=== PATIENT | male | born 1985 | race Caucasian/White ===

== ENCOUNTER 2016-12-08 18:00 | Emergency (ER) ==
[2016-12-08 18:09] VITALS: BP 165/102
[2016-12-08] MEDS ORDERED: NS 500 ML IV ONE (18:16)
[2016-12-08] MEDS ORDERED: FLOMAX PO ONE (18:16)
[2016-12-08] MEDS ORDERED: DILAUDID IV ONE (18:16)
[2016-12-08] MEDS ORDERED: ZOFRAN IV ONE (18:16)
--- NOTE | 2016-12-08 18:20 | PROVIDER DOCUMENTATION ---
HPI-Abdominal Pain/GI Problem - General Chief Complaint: Flank Pain Stated Complaint: KIDNY STONE Time Seen by Provider: 12/08/16 18:10 Source: patient Allergies/Adverse Reactions: Patient Allergies Allergy/AdvReac Type Severity Reaction Status Date / Time ceftriaxone sodium * Allergy Severe HIVES Verified 02/26/16 07:24 [From Rocephin] Penicillins Allergy Severe ANAPHYLAXIS Verified 02/26/16 07:24 Home Medications: Gabapentin 100 mg PO DAILY 07/02/15 Hydrocodone/APAP 7.5 mg/325 mg [[place]-7.5] 5 mg PO BID 07/02/15 Zolpidem Tartrate [Ambien Cr] 12.5 mg PO DAILY 07/02/15 - History of Present Illness-ABD Nature of Presenting Problems: 31 year old M presents to the ED with a cc of left flank pain with an onset of today. Pt states that he has had some nausea for the past few days. PT reports hematuria today. PT states that it feels just like his previous kidney stones. Abdominal Pain Onset Location: reports: flank Pain Radiation: reports: LLQ Quality of Pain: reports: aching Severity in ED: reports: mild Onset/Duration: reports: this afternoon Timing: reports: still present Activities at Onset: reports: none Modifying Factors: improves with: nothing Associated Symptoms: reports: nausea Bruising or Bleeding Gums?: No Similar Symptoms Previously?: Yes Recently seen or treated by another doctor?: No Review of Systems - Adult - REVIEW OF SYSTEMS - ADULT Constitutional: denies: chills, fever Eyes: reports: no symptoms reported Ears, Nose, Mouth & Throat: reports: no symptoms reported Cardiovascular: reports: no symptoms reported Respiratory: reports: no symptoms reported Gastrointestinal: reports: abdominal pain, nausea. denies: vomiting Genitourinary: reports: flank pain, hematuria. denies: dysuria Musculoskeletal: denies: back pain, muscle aches Integumentary: reports: no symptoms reported Neurological: reports: no symptoms reported Psychiatric: reports: no symptoms reported Endocrine: reports: no symptoms reported Hematologic/Lymphatic: reports: no symptoms reported Allergic/Immunologic: reports: no symptoms reported All Other Systems: Reviewed and Negative Past History - Adult - PAST MEDICAL HISTORY-ADULT Review of Records: reports: Nursing Assessment Review, Medications Reviewed Major Childhood Illnesses: reports: denies history Genitourinary: reports: kidney stones Musculoskeletal: reports: chronic pain, intervertebral disc disease - PRIOR SURGERIES/PROCEDURES Surgical/Procedure History: reports: tonsillectomy - IMMUNIZATION STATUS Childhood Immunizations: See Nurse Assessment Flu Vaccine: See Nurse Assessment - FAMILY HISTORY Family History: reviewed, not pertinent - SOCIAL HISTORY Smoking: cigarettes Provider spent 3-5 mins advising pt. on dangers of tobacco.: Discussed manners to quit use, and f/u contacts for add'l counseling. Substance Use: none/never Alcohol Use Frequency: never Physical Exam-General - PHYSICAL EXAM-ADULT Initial Vital Signs Reviewed: Yes - CONSTITUTIONAL General Appearance: appears well, alert, no apparent distress - RESPIRATORY Respiratory: chest non-tender, lungs clear, normal breath sounds - CARDIOVASCULAR Cardiovascular: normal peripheral pulses, regular rate, rhythm, no edema - GASTROINTESTINAL (ABDOMEN) Abdominal Exam: normal bowel sounds, soft, tenderness (mild LLQ) - MUSCULOSKELETAL Back Exam: CVA tenderness (moderate left) - SKIN Integumentary: normal color, normal turgor, warm/dry - PSYCHIATRIC Psych/Mental Status: normal mood/affect, normal thought content, normal thought process, oriented x 3 Progress - PLAN OF CARE/RESULTS Progress/Plan/Lab Results: Plan of care: fluids, meidcations, labs Dr. Figueroa discussed with pt about the risks of multiple CT scans. PT agrees and is okay with not getting a scan. Orders Category Date Time Status URINALYSIS PL W/POSS RFLX CULT [URINALYSIS] Stat Lab 12/08/16 18:16 Uncollected 0.9% Sodium Chloride Inj [Ns] 500 ml Med 12/08/16 18:16 Active IV 999 mls/hr Hydromorphone [Dilaudid] Med 12/08/16 18:16 Discontinued 1 mg IV NOW ONE Ondansetron [Zofran] Med 12/08/16 18:16 Discontinued 4 mg IV NOW ONE Tamsulosin [Flomax] Med 12/08/16 18:16 Discontinued 0.4 mg PO NOW ONE Vital Signs - 24 hr 12/08/16 18:07 Temperature 97.8 F Pulse Rate 102 H Respiratory 18 Rate Blood Pressure 165/102 O2 Sat by Pulse 100 Oximetry Pt given results and will be d/c home w/ rx to follow up with PCP. Pt verbally understood instructions. PT remained clinically stable throughout the course of the ED stay and will return if symptoms worsen. - REASSESSMENT Reassessment #1 Time Reassessed: 19:00 (Pt feeling much better. PT declines narcotic script due to being on pain management. PT will be d/c home with RX and a follow up with Dr. Salomon. ) Departure - Departure Time of Disposition Order: 19:03 DIAGNOSIS: Kidney stone Disposition: HOME 01 Certified Medical Emergency: Emergent Condition: Good Additional Instructions: Follow up urology. Return to ED for any new or worsening symptoms. Establish care with a primary physician by calling the physician referral line below ED Follow Up Instructions: You have been treated by a care provider in the Emergency Department. These instructions are being provided to you so you can have an understanding of how to care for yourself upon discharge. Upon discharge from the Emergency Department, you are responsible for making arrangements for follow-up care by a physician of your choice. Take all prescribed medications as directed. Return to the Emergency Department immediately for any new or worsening symptoms. You may call the Physician Referral phone number at [phone] to obtain a list of Physicians who are taking new patients. Prescriptions: Tamsulosin [Flomax] 0.4 mg PO DAILY #7 capsule Ketorolac [Toradol] 10 mg PO Q6H PRN PRN #20 tablet PRN Reason: Pain Ondansetron [Zofran Odt] 8 mg PO Q8H PRN #20 tab.rapdis Referrals: None,PCP [Primary Care Provider] - Marco Salomon MD [STAFF PHYSICIAN] - Attestation - Scribe Verification/Attestation Scribe:: Lydia Jonas Acting as Scribe for:: Anshul Figueroa Scribe documention review:: This chart was documented by a scribe and accurately reflects the service the provider performed and the decisions made by the provider. Physician Attestation - Physician Attestation I, the provider, attest to the following statement:: Anshul Figueroa Physician documentation Attestation:: This documentation recorded by the scribe accurately reflects the service I personally performed and the decisions made by me.
[2016-12-08] MEDS ORDERED: TORADOL ONE (18:39)
[2016-12-08] MEDS ORDERED: TORADOL IV ONE (18:53)
== END 2016-12-08 19:43 | disposition home or self-care (01) ==
LOC: P.ED 18:00
DX: N20.0 Calculus of kidney (principal); R10.9 Unspecified abdominal pain; R10.32 Left lower quadrant pain; R11.0 Nausea; R31.9 Hematuria, unspecified; Z87.442 Personal history of urinary calculi; G89.29 Other chronic pain; M48.9 Spondylopathy, unspecified; F17.210 Nicotine dependence, cigarettes, uncomplicated; Z71.6 Tobacco abuse counseling; Z79.899 Other long term (current) drug therapy
CPT/HCPCS: 96361; 96374; 96375; J1170; J1885; J2405; J7040

== ENCOUNTER 2019-08-16 16:19 | Inpatient (IN) ==
[2019-08-16] MEDS ORDERED: ZOFRAN IV ONE (18:14)
[2019-08-16] MEDS ORDERED: NS 1,000 ML IV ONE (18:14)
--- NOTE | 2019-08-16 18:14 | PROVIDER DOCUMENTATION ---
HPI-Male Problem - General Chief Complaint: Flank Pain Stated Complaint: ABD PAIN Time Seen by Provider: 08/16/19 18:09 Source: patient Allergies/Adverse Reactions: Patient Allergies Allergy/AdvReac Type Severity Reaction Status Date / Time ceftriaxone sodium * Allergy Severe HIVES Verified 02/26/16 07:24 [From Rocephin] Penicillins Allergy Severe ANAPHYLAXIS Verified 02/26/16 07:24 Home Medications: Home Medication List Medication Instructions Recorded Confirmed Last Taken Type Gabapentin 100 mg PO DAILY 07/02/15 02/26/16 Unknown History Hydrocodone/APAP 7.5 mg/325 mg 5 mg PO BID 07/02/15 02/26/16 07/02/15 History [[place]-7.5] Naproxen 500 mg PO BID AC #20 tablet 07/02/15 02/26/16 Unknown Rx Zolpidem Tartrate [Ambien Cr] 12.5 mg PO DAILY 07/02/15 02/26/16 1 Day Ago History ~07/01/15 Hydrocodone/APAP 5 mg/325 mg 1 - 2 tab PO Q6H PRN PRN #18 tablet 02/26/16 Unknown Rx [[place]-5] Ketorolac [Toradol] 10 mg PO Q6H PRN PRN #20 tablet 02/26/16 Unknown Rx Tamsulosin [Flomax] 0.4 mg PO DAILY #14 capsule 02/26/16 Unknown Rx Ketorolac [Toradol] 10 mg PO Q6H PRN PRN #20 tablet 12/08/16 Unknown Rx Ondansetron [Zofran Odt] 8 mg PO Q8H PRN #20 tab.rapdis 12/08/16 Unknown Rx Tamsulosin [Flomax] 0.4 mg PO DAILY #7 capsule 12/08/16 Unknown Rx Levofloxacin [Levaquin] 750 mg PO DAILY #14 tab 08/16/19 Unknown Rx - History of Present Illness-Male Nature of Presenting Problem: 33 yom presents with r flank pain radiating to the groin and nausea. reports a hx of kidney stones. Denies fever, chills, inability to urinate. Location of Complaint: reports: right flank Radiation: reports: groin Quality of Pain: reports: aching, sharp Severity in ED: reports: moderate Onset/Duration: reports: 24 hours ago Timing: reports: still present Context/Activities at Onset: reports: none Urinary Symptoms: reports: dysuria, hematuria Sexual intercourse history: reports: Single Partner Contraception: reports: none Associated Symptoms: reports: none Associated Symptoms: reports: denies symptoms. denies: fever/chills Similar Symptoms Previously?: Yes Recently seen or treated by another doctor?: No Review of Systems - Adult - REVIEW OF SYSTEMS - ADULT Constitutional: reports: no symptoms reported. denies: see HPI, chills, fever, fatique, night sweats, weight gain, weight loss, other Eyes: reports: no symptoms reported. denies: see HPI, discharge, dry eyes, decreased vision, blurred vision, double vision, eye pain, redness, other Ears, Nose, Mouth & Throat: reports: no symptoms reported. denies: see HPI, ear discharge, ear pain, hearing loss, tinnitus, epistaxis, sinus problem, nose pain, loose teeth, mouth/dental pain, mouth swelling, hoarseness, throat pain, throat swelling, other Cardiovascular: reports: no symptoms reported. denies: see HPI, chest pain, edema, heart murmur, irregular heart rate, orthopnea, palpitations, poor circulation, PND, syncope, other Respiratory: reports: no symptoms reported. denies: see HPI, chronic cough, cough, dyspnea on exertion, excessive sputum production, hemoptysis, pleurisy, shortness of breath, wheezing, other Gastrointestinal: reports: no symptoms reported. denies: see HPI, abdominal pain, hematemesis, constipation, diarrhea, difficulty swallowing, frequent heartburn, nausea, poor appetite, rectal bleeding, vomiting, other Genitourinary: reports: see HPI, dysuria, flank pain, hematuria. denies: no symptoms reported, discharge, frequency, frequent UTI's, hesitency, incontinen ce, urinary retention, urgency, other Musculoskeletal: reports: no symptoms reported. denies: see HPI, bone pain, back pain, frequent leg cramps, joint pain, joint swelling, muscle aches, muscle weakness, neck pain, other Integumentary: reports: no symptoms reported. denies: see HPI, hives, hair loss, itching, mole changes, nail changes, rash, skin sores/ulcer, skin thickening, other Neurological: reports: no symptoms reported. denies: see HPI, ataxia, dizziness/vertigo, headache/migraines, loss of balance, numbness, paresthesia, seizure, slurred speech, syncope, tremors, other Psychiatric: reports: no symptoms reported. denies: see HPI, anxiety, anti- depressant use, alcohol/drug dependence, depression, emotional problems, insomnia, panic attacks, suicidal thoughts, other Endocrine: reports: no symptoms reported. denies: see HPI, change in skin pigment, excessive sweating, goiter, cold intolerance, heat intolerance, increased hunger, increased thirst, polyuria, other Hematologic/Lymphatic: reports: no symptoms reported. denies: see HPI, blood clots, easy bruising, low blood count, lymphedema, prolonged bleeding, swollen lymph nodes, transfusions, other Allergic/Immunologic: reports: no symptoms reported. denies: see HPI, allergic reactions, allergic rhinitis, asthma, eczema, food allergy, frequent infections, hay fever, hives, positive PPD, urticaria, other Past History - Adult - PAST MEDICAL HISTORY-ADULT Review of Records: reports: Old Records Reviewed, Nursing Assessment Review, Social history reviewed & non-contributory. Major Childhood Illnesses: reports: denies history Genitourinary: reports: kidney stones Musculoskeletal: reports: chronic pain, intervertebral disc disease - PRIOR SURGERIES/PROCEDURES Surgical/Procedure History: reports: tonsillectomy - IMMUNIZATION STATUS Childhood Immunizations: See Nurse Assessment Flu Vaccine: See Nurse Assessment - FAMILY HISTORY Family History: reviewed, not pertinent Physical Exam-General - PHYSICAL EXAM-ADULT Initial Vital Signs Reviewed: Yes - CONSTITUTIONAL General Appearance: appears well, alert, no apparent distress - EYES Eyes: PERRL/EOMI, pink conjunctivae - HEAD, EARS, NOSE, MOUTH & THROAT HENMT: normocephalic/atraumatic, moist mucous membranes, normal ENT inspection - NECK Neck: non-tender, full range of motion, supple - RESPIRATORY Respiratory: chest non-tender, lungs clear, normal breath sounds, no pleuratic chest pain, no respiratory distress, no accessory muscle use - CARDIOVASCULAR Cardiovascular: normal peripheral pulses, regular rate, rhythm, no edema, no gallop, no JVD, no murmur - GASTROINTESTINAL (ABDOMEN) Abdominal Exam: normal bowel sounds, non tender, soft - LYMPHATIC Lymphatic: no adenopathy - MUSCULOSKELETAL Back Exam: normal inspection, no CVA tenderness, no vertebral tenderness Extremity: normal range of motion, non-tender, normal gait, normal inspection - SKIN Integumentary: normal color, normal turgor, warm/dry - NEUROLOGIC Neurologic: grossly normal - PSYCHIATRIC Psych/Mental Status: normal mood/affect, oriented x 3 Progress - PLAN OF CARE/RESULTS Progress/Plan/Lab Results: Vital Signs - 8 hr 08/16/19 17:10 08/16/19 20:10 Temperature 98 F 98.5 F Pulse Rate 110 H 120 H Respiratory Rate 18 19 Blood Pressure 153/89 146/108 O2 Sat by Pulse Oximetry 100 100 Laboratory Results - last 24 hr 08/16/19 08/16/19 08/16/19 17:16 19:50 19:50 WBC 18.06 H RBC 6.39 H Hgb 18.0 Hct 52.2 H MCV 81.7 MCH 28.2 MCHC 34.5 RDW Std Deviation 12.6 Plt Count 312 MPV 11.0 H Immature Gran % (Auto) 0.4 Neut % (Auto) 83.5 H Lymph % (Auto) 9.7 L [place] % (Auto) 5.4 Eos % (Auto) 0.8 Baso % (Auto) 0.2 Immature Gran # (Auto) 0.07 H Neut # (Auto) 15.09 H Lymph # (Auto) 1.75 Ware # (Auto) 0.98 H Eos # (Auto) 0.14 Baso # (Auto) 0.03 Sodium 138 Potassium 5.0 Chloride 97 L Carbon Dioxide 27 Anion Gap 14 BUN 17 Creatinine 1.0 Estimated GFR/1.73 m2 > 60 BUN/Creatinine Ratio 17 Glucose 117 H Calculated Osmolality 278 Calcium 10.3 H Total Bilirubin 0.90 AST 48 H ALT 74 H Alkaline Phosphatase 114 Total Protein 9.1 H Albumin 5.4 H Globulin 4.0 Albumin/Globulin Ratio 1.0 Urine Source CLEAN CATCH Urine Color RED Urine Clarity VERY CLOUDY A Urine pH 7.0 Ur Specific [place] 1.020 Urine Protein 3+(500 mg/dL) A Urine Ketones 1+(Small) A Urine Blood 4+ Urine Nitrite POSITIVE A Urine Bilirubin NEGATIVE Urine Urobilinogen 1 Urine Microscopic RBC TNTC A Urine WBC 2+ A Urine Microscopic WBC 10-20 A Ur Epithelial Cells <10 Urine Crystals CA OXALATE PRESENT Urine Bacteria 2+ Urine Glucose NEGATIVE Orders Category Date Time Status Saline Loc NOW Care 08/16/19 18:[address] RENAL STONE SEARCH [CT] Stat Exams 08/16/19 18:11 Completed CBC WITH ELECTRONIC DIFF [HEME] Stat Lab 08/16/19 19:50 Completed COMPREHENSIVE METABOLIC PANEL [CHEM] Stat Lab 08/16/19 19:[address] W/POSS RFLX CULT [URINALYSIS] Stat Lab 08/16/19 17:16 Completed URINE CULTURE [RM] Routine Lab 08/16/19 20:53 Ordered 0.9% Sodium Chloride Inj [Ns] 1,000 ml Med 08/16/19 18:14 Discontinued IV 999 mls/hr Ketorolac [Toradol] Med 08/16/19 18:15 Discontinued 30 mg IV NOW ONE Levofloxacin 500 mg/D5w [Levaquin 500 mg/D5w] Med 08/16/19 20:59 Active 500 mg in 100 ml IV NOW Ondansetron [Zofran] Med 08/16/19 18:14 Discontinued 4 mg IV NOW ONE 2000: NURSING ASKED TO EXPEDITE URINE 2039: NURSING ASKED AGAIN FOR URINE. THERE IS URINE IN LAB AND ORDER NEEDS TO BE PUSHED ACROSS. 2039: URINE IN LAB AND RUNNING 2100: SPOKE WITH DR TRIMBLE WHO IS IN AGREEMENT WITH ADMITTING THE PATIENT TO [facility], GIVING IVF AND ABX. WILL CONSULT HIM 3: DISCUSSED WITH PT THE NEED TO BE ADMITTED. THE PATIENT REFUSES, THE RISK OF LEAVING AMA WERE DISCUSSED INCLUDING RENAL FAILURE AND UP TO THE PATIENT VERBALIZES UNDERSTANDING. HE DOES AGREE TO GET HIS RX FILLED DESPITE COST 2143: PT HAS DECIDED TO BE ADMITTED. Result Diagrams: 08/16/19 19:50 08/16/19 19:50 - CT/MRI 1 CT Study: Abdomen, Pelvis Impression: See EMR Report (EXAM: CT RENAL STONE SEARCH 08/16/2019 HISTORY: R flank pain, hx of stones TECHNIQUE: This exam was performed using automated exposure control, adjustment of mA or kV according to patient size, and/or use of iterative reconstruction technique. COMMENT: There is no evidence of acute disease in the visualized portion of the chest. The current study is compared with the previous examination of 02/26/2016. The liver is slightly hypodense. There are several stones in the right kidney including large stones in the lower pole and renal pelvis the latter measuring almost 17 mm in size. There is some stranding around the renal pelvis and proximal ureter. There are no ureteral stones. 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 There are no gallstones. There is no evidence of bowel obstruction. There is a fair amount of stool in the right colon. The appendix is not distended or inflamed in appearance. There are bone islands in both femoral heads. There is degenerative disc disease with vacuum phenomenon at L5-S1 and bilateral spondylolysis at L5. There is grade 1 anterolisthesis of L5 on S1. IMPRESSION: Right nephrolithiasis. Apparent inflammation around the right renal pelvis. Electronically signed by Nelson Latif 08/16/2019 7:06 PM 08/16/191905 Interpreting Physician: Nelson Latif MD Dictated Date/Time: 08/16/191901 cc: Clarice Guaman; None,PCP) - CONSULTS/PCP/HOSPITALIST Notification #1 *Consult/PCP/Hospitalist*: DR TRIMBLE Time Discussed: 20:50 Reason/Comments: RECS TO ADMIT GIVE IVF AND ABX. HE CAN SEE AT [facility] Consult: DR RUSHING Time Discussed: 21:46 Consult Disposition: Admit Departure - Departure Date of Disposition Decision: 08/16/19 Time of Disposition Decision: 21:13 DIAGNOSIS: Renal stone, UTI (urinary tract infection), Elevated WBC count, Tachycardia Disposition: ADMITTED INPATIENT 09 Certified Medical Emergency: Emergent Condition: Stable Additional Freetext Instructions: ED Follow Up Instructions: DISCUSSED YOU ARE LEAVING AGAINST MEDICAL ADVICE, THERE IS A RISK INCLUDING . RETURN TO ER IF YOU DEVELOP FEVER, CHILLS, INABILITY TO URINATE, NAUSEA, VOMITING OR ANY NEW OR WORSENING SYMPTOMS You have been treated by a care provider in the Emergency Department. These instructions are being provided to you so you can have an understanding of how to care for yourself upon discharge. Upon discharge from the Emergency Department, you are responsible for making arrangements for follow-up care by a physician of your choice. Take all prescribed medications as directed. Return to the Emergency Department immediately for any new or worsening symptoms. You may call the Physician Referral phone number at [phone] to obtain a list of Physicians who are taking new patients. Prescriptions: Levofloxacin [Levaquin] 750 mg PO DAILY #14 tab Referrals and Follow-Ups: None,PCP [Primary Care Provider] - [facility] [NON-STAFF PROVIDER] - Evangelista Trimble MD [ACTIVE STAFF PHYSICIAN] - Discharge Education: Urinary Tract Infection, Adult - Critical Care Note This patient required my direct & personal management of CC.: No Attestation - Physician/ IVORY Attestation Patient care was provided by Advanced Practice Provider:: Yes Advanced Practice Provider:: Clarice Guaman Advanced Practice Provider documentation review:: The Mid-level provider documentation, treatment plan and medical decision making was reviewed by the physician who agrees with all treatment and medical decision making by the MLP. The physician spent face to face time with patient:: No Advanced Practice Provider documentation review:: Supervising physician onsite and consulted in the evaluation and care of this patient. The physician did not have a face to face encounter with the patient.
[2019-08-16] MEDS ORDERED: TORADOL IV ONE (18:15)
--- NOTE | 2019-08-16 19:08 | Diag Imaging Result Doc PS360 ---
EXAM: CT RENAL STONE SEARCH 08/16/2019 HISTORY: R flank pain, hx of stones TECHNIQUE: This exam was performed using automated exposure control, adjustment of mA or kV according to patient size, and/or use of iterative reconstruction technique. COMMENT: There is no evidence of acute disease in the visualized portion of the chest. The current study is compared with the previous examination of 02/26/2016. The liver is slightly hypodense. There are several stones in the right kidney including large stones in the lower pole and renal pelvis the latter measuring almost 17 mm in size. There is some stranding around the renal pelvis and proximal ureter. There are no ureteral stones. 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 There are no gallstones. There is no evidence of bowel obstruction. There is a fair amount of stool in the right colon. The appendix is not distended or inflamed in appearance. There are bone islands in both femoral heads. There is degenerative disc disease with vacuum phenomenon at L5-S1 and bilateral spondylolysis at L5. There is grade 1 anterolisthesis of L5 on S1. IMPRESSION: Right nephrolithiasis. Apparent inflammation around the right renal pelvis. Electronically signed by Nelson Latif 08/16/2019 7:06 PM
[2019-08-16 20:05] LABS: BASO# 0.03 X1000 (0.0-0.2); BASO% 0.2 % (0.0-0.8); EOS# 0.14 X1000 (0.0-0.7); EOS% 0.8 % (0.0-10.0); HEMATOCRIT 52.2 % (42.0-52.0); IMM GRAN# 0.07 X1000 (0.0-0.04); IMM GRAN% 0.4 % (0.0-0.5); LYMPH# 1.75 X1000 (1.2-3.4); LYMPH% 9.7 % (20.5-51.1); MCH 28.2 PG (27-31); MCHC 34.5 g/dL (33-37); MCV 81.7 FL (81-99); MONO# 0.98 X1000 (0.11-0.59); MONO% 5.4 % (1.7-9.3); NEUT# 15.09 X1000 (1.4-6.5); NEUT% 83.5 % (42.2-75.2); PLT 312 X1000 (130-400); RBC 6.39 XMIL (4.7-6.1); RDW 12.6 % (11.5-14.5); WBC 18.06 X1000 (4.8-10.8)
[2019-08-16 20:25] LABS: AGAP 14; CHLORIDE 97 mmol/L (98-107); GLUCOSE 117 mg/dL (70-104); SODIUM 138 mmol/L (136-145); TCO2 27 mmol/L (25-35)
[2019-08-16 20:26] LABS: ALBUMIN 5.4 g/dL (3.5-5.0); ALKALINE PHOSPHATASE 114 U/L (32-122); BUN 17 mg/dL (8-22); CALCIUM 10.3 mg/dL (8.8-10.2); COSMO 278; ESTIMATED GFR > 60; GOT 48 U/L (10-34); GPT 74 U/L (10-44); TOTAL PROTEIN 9.1 g/dL (6.3-8.3)
[2019-08-16 20:49] LABS: BILIRUBIN URINE NEGATIVE (NEGATIVE); BLOOD URINE 4+ (NEGATIVE); CLARITY VERY CLOUDY (CLEAR); COLOR RED; GLUCOSE URINE NEGATIVE (NEGATIVE); KETONE URINE 1+(Small) mg/dL (NEGATIVE); LEUKOCYTES URINE 2+ (NEGATIVE); NITRITE URINE POSITIVE (NEGATIVE); UROBILINOGEN URINE 1 mg/dL
[2019-08-16 20:50] LABS: URINE SOURCE CLEAN CATCH
[2019-08-16 20:52] LABS: URINE BACTERIA 2+ /HFP; URINE EPITHELIAL CELLS <10 /HPF (<10); URINE RBC TNTC /HPF (<10)
[2019-08-16 20:53] LABS: URINE CRYSTAL CA OXALATE PRESENT /HPF
[2019-08-16] MEDS ORDERED: LEVAQUIN 500 MG/D5W 500 MG/100 ML IVPB IV ONE (20:59)
[2019-08-17] MEDS ORDERED: ZOFRAN IV PRN (00:58)
[2019-08-17] MEDS ORDERED: LEVAQUIN 500 MG/D5W 500 MG/100 ML IVPB IV SCH (01:00)
--- NOTE | 2019-08-17 01:25 | HISTORY AND PHYSICAL ---
PRIMARY CARE PHYSICIAN: Dr. Palomino. CHIEF COMPLAINT: Abdominal/right flank pain. HISTORY OF PRESENTING ILLNESS: A 33-year-old male with a history of chronic low back pain and previous history of kidney stones, who presented to emergency department with several days history of having abdominal pain that was going to his right flank region. The patient, apparently, was seen at [facility], where he had renal CT which did show a right nephrolithiasis. His case was discussed with Urology, who recommended the patient be transferred to [facility] for further evaluation and management. The patient's renal CT did show large stones, about 17 mm in size, in the lower poles and renal pelvis. At the time of my examination, patient denied any headache, fever, chills, chest pain, shortness of breath, or any weight changes, but complained of right abdominal and flank pain. PAST MEDICAL HISTORY: Includes chronic low back pain, kidney stones. PAST SURGICAL HISTORY: Tonsillectomy. ALLERGIES: Penicillin, Rocephin, and Ceclor. CURRENT MEDICATIONS: None. SOCIAL HISTORY: A 15 pack-year history of smoking. No history of alcohol or illicit drug use. FAMILY HISTORY: No history of coronary disease. REVIEW OF SYSTEMS: Fourteen-point review of system as listed in HPI. Other systems negative. PHYSICAL EXAMINATION: GENERAL: Cooperative, friendly male. He is resting comfortably now. VITAL SIGNS: Temperature 98.7 degrees, pulse 89, respirations 20, blood pressure 145/99. HEENT: Atraumatic, normocephalic. Extraocular movements intact. PERRLA. NECK: Supple. CHEST: Clear to auscultation. CARDIOVASCULAR: Regular rate and rhythm. ABDOMEN: Soft. Some mild right lower quadrant/flank tenderness. NEUROLOGIC: He is awake, alert, oriented x3. GENITOURINARY: No bladder distention. SKIN: Warm. LABORATORIES AND STUDIES: WBCs 18.06, hemoglobin 18.1, hematocrit 52.2, platelets 312,000. Sodium 138, potassium 5.0, chloride 97, CO2 is 27, BUN is 17, creatinine is 1.0. Glucose is 117. Renal CT shows right nephrolithiasis and apparent inflammation of the right renal pelvis. ASSESSMENT: A 33-year-old male with a history of chronic low back pain and kidney stones, who presented to emergency department with several days history of having right lower quadrant abdominal pain with radiation to his right flank region. He was initially evaluated at [facility], where he had a renal CT, which did show a right nephrolithiasis with stones measuring about 17 mm, and inflammation around the right renal pelvis. His case was discussed with urologist, who recommended the patient be transferred to [facility] for further evaluation and management. 1. Right nephrolithiasis with inflammation around the right renal pelvis. 2. Chronic low back pain. PLAN: 1. We will admit patient to medical floor with telemetry. 2. Keep patient NPO. Continue with IV fluids, antiemetics, pain control. 3. Start patient on IV antibiotics. 4. We will consult Urology. 5. We will put patient on DVT prophylaxis with SCDs. 6. We will continue to follow and reassess, make further recommendation based on patient's clinical course. cc: Norm Rey MD MTDD
[2019-08-17] MEDS: NS 1,000 ML IV SCH ×3 (01:59→18:28)
[2019-08-17] MEDS: MORPHINE IV PRN ×4 (01:59→19:28)
--- NOTE | 2019-08-17 09:40 | PROGRESS NOTE ---
DATE: 08/17/2019 SUBJECTIVE: This morning Mr. Barba refers to be still hurting especially at the right side. Mr. Barba came in yesterday because of an acute onset of right flank and lower abdomen pain associated with hematuria. He was evaluated. Imaging studies confirmed a right nephrolithiasis with inflammation around the renal pelvis. He is pending Urology evaluation. OBJECTIVELY: Current vitals: Blood pressure is 132/89, pulse of 97, respirations 20, temperature 97.4 degrees. The patient is saturating 99% on room air. General: Mr. Barba is a 33-year-old gentleman. He is in bed, no distress. HEENT: Mucosa is pink and moist. Anicteric. Acyanotic. Neck: Supple. Chest: Clear to auscultation. No crepitations. No rhonchi. Cardiovascular: Regular rate and rhythm. Abdomen: Soft. Some tenderness in the right lower abdomen, but there was no guarding, no rebound. There was also mild right CVA tenderness. HOT STRIP FINISHER: Patient is awake, alert, and oriented. There is no focal neurological deficit. LABORATORY DATA: From yesterday has been reviewed. WBC was 18.09. Rest of labs were unremarkable. Urinalysis also did show positive nitrates, too numerous to count RBCs and also 10 to 20 WBCs. There was calcium oxalate present. The patient's calcium was about 10.3. Lactate was normal. ASSESSMENT: 1. Right nephrolithiasis with possible pyelonephritis. The patient is on hydration, pain management and antibiotics. We are pending Urology evaluation. 2. Clinical volume depletion, will continue with fluid resuscitation. 3. Chronic lower back pain, noted. 4. History of tobacco use and abuse. The patient has been counseled on cessation. Nicotine patch has been offered. 5. Mild transaminitis. We will repeat the levels tomorrow. We will also do a hepatitis panel to rule out any viral hepatitis. cc: Leonard Kaufman MD
--- NOTE | 2019-08-17 10:15 | CONSULTATION ---
DATE OF CONSULTATION: 08/17/2019 CHIEF COMPLAINT: Right renal stone and right flank pain. PRESENT ILLNESS: Mr. Barba is a 33-year-old with history of chronic lower back pain and nephrolithiasis who presented to the emergency room yesterday with several-day history of worsening lower abdominal pain on the right associated flank pain. The patient has a long history of kidney stones starting back many years ago. The patient has never passed his stones he states, but has had multiple CT scans performed for them. The patient was last seen for kidney stones back in [address] scan which showed a 7 mm stone within the right kidney. He states he never passed that stone. The patient presented to [facility] yesterday after he was having pain yesterday morning that persisted. 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 The patient also had a left renal cyst. The patient denies any fevers, chills, nausea, vomiting, dysuria, hematuria. The patient states that he drinks half a gallon of tea a day. The patient has never received any therapy for kidney stones previously. PAST MEDICAL HISTORY: 1. Chronic lower back pain number. 2. Kidney stones. PAST SURGICAL HISTORY: 1. Tonsillectomy. 2. Epidural ablation of nerves. ALLERGIES: 1. Penicillin. 2. Rocephin. 3. Ceclor. CURRENT MEDICATIONS: None. SOCIAL HISTORY: The patient is a daily smoker and uses occasional alcohol. Denies illicit drug use. FAMILY HISTORY: Denies family history of malignancy or kidney stones. REVIEW OF SYSTEMS: Twelve point review of systems performed with all pertinent positives and negatives in HPI. PHYSICAL EXAMINATION: Vital Signs: Temperature 97.4 degrees, heart rate 97, blood pressure 132/89, oxygen saturation 99% on room air. General: No acute distress. Resting comfortably in bed. Alert and oriented x3. HEENT: Normocephalic, atraumatic. Pupils equal, round, reactive to light. Dentition fair. Neck: Trachea midline. No palpable masses. Respiratory: Good respiratory effort without audible wheezing or rales. Cardiovascular: Regular rate and rhythm. Abdomen: Soft, nontender, nondistended. No palpable masses or hepatosplenomegaly. : No suprapubic tenderness. No CVA tenderness. Normal phallus with bilateral testicles palpated without masses. Neurologic: Gross motor and sensory intact. Musculoskeletal: Moving all extremities. Skin: No skin lesions or rashes. LABS: White blood count 18.1, hemoglobin 18, hematocrit 52.2, platelets 312,000. Sodium 138, potassium 5, chloride 97, bicarb 27, creatinine 1, glucose 117, calcium 10.3, AST 48, ALT 74, alkaline phosphatase 114. Urinalysis showed 3+ protein, 1+ ketones, 4+ blood, nitrite positive, 10 to 20 white blood cells with calcium oxalate stones present. IMAGING: CT scan was reviewed which showed right renal stone measuring 1.7 x 3.5 cm in length. It seems to encompass most of the renal pelvis and the lower pole, is slightly staghorn in appearance. The patient has a moderate-sized left renal cyst. No evidence of any hydronephrosis bilaterally with no ureteral stones. ASSESSMENT AND PLAN: Mr. Barba is 33-year-old with a long history of chronic back pain and nephrolithiasis who presented to [facility] complaining of right lower quadrant abdominal flank pain. CT scan showed a large stone within the kidney itself. The patient has dealt with the stone for a number years now. Never pursued urologic evaluation. The patient consumes a large amount of tea every day and likely has several triggers that can lead to a stone formation. I talked with him this morning and told him this is a large stone that would need significant intervention to remove. Likely would need percutaneous nephrostolithotomy to remove his stone. I discussed this with him at length. The patient currently is about to start a new job. I told him that it may wait until after he starts to allow him to have insurance and may make it more affordable for him. From an active management, I recommended continue antibiotics. Follow up his urine culture and treat with culture specific antibiotics, manages pain with oral pain medication. No surgical intervention is planned during this hospitalization. We will continue to monitor from a urologic standpoint. Please call with questions or concerns. cc: Evangelista Trimble MD [facility]ENTERMaria M
[2019-08-17 11:21] LABS: CALCIUM 8.9 mg/dL (8.8-10.2)
[2019-08-17] MEDS: BENTYL IM ONE ×2 (12:01→12:15)
[2019-08-17] MEDS: FLOMAX PO SCH (12:02)
[2019-08-17] MEDS: NICODERM PATCH TD SCH (12:03)
[2019-08-18] MEDS: MORPHINE IV PRN ×3 (00:41→10:38)
[2019-08-18] MEDS: NS 1,000 ML IV SCH ×2 (04:06→13:40)
[2019-08-18 07:44] LABS: BASO# 0.02 X1000 (0.0-0.2); BASO% 0.2 % (0.0-0.8); EOS# 0.55 X1000 (0.0-0.7); EOS% 6.8 % (0.0-10.0); HEMATOCRIT 44.5 % (42.0-52.0); HEMOGLOBIN 15.1 g/dL (14.0-18.0); IMM GRAN# 0.04 X1000 (0.0-0.04); IMM GRAN% 0.5 % (0.0-0.5); LYMPH# 2.45 X1000 (1.2-3.4); LYMPH% 30.2 % (20.5-51.1); MCH 28.8 PG (27-31); MCHC 33.9 g/dL (33-37); MCV 84.9 FL (81-99); MONO# 0.68 X1000 (0.11-0.59); MONO% 8.4 % (1.7-9.3); MPV 10.6 FL (7.4-10.4); NEUT# 4.37 X1000 (1.4-6.5); NEUT% 53.9 % (42.2-75.2); PLT 214 X1000 (130-400); RBC 5.24 XMIL (4.7-6.1); RDW 12.6 % (11.5-14.5); WBC 8.11 X1000 (4.8-10.8)
[2019-08-18 07:47] VITALS: BP 132/90
[2019-08-18 08:00] LABS: AGAP 12; BUN 16 mg/dL (8-22); CALCIUM 9.2 mg/dL (8.8-10.2); CHLORIDE 105 mmol/L (98-107); COSMO 281; CREATININE 0.9 mg/dL (0.7-1.2); ESTIMATED GFR > 60; GLUCOSE 107 mg/dL (70-104); SODIUM 140 mmol/L (136-145); TCO2 23 mmol/L (25-35)
--- NOTE | 2019-08-18 08:22 | PROGRESS NOTE ---
DATE: 08/18/2019 SUBJECTIVE: No acute events overnight. The patient states his pain is better controlled. He remains afebrile with stable vital signs. He is tolerating a diet without any nausea or vomiting. He is urinating without hematuria or dysuria. OBJECTIVE: Vital Signs: Temperature 97.5 degrees, heart rate 79, blood pressure 132/90, oxygen saturation 98% on room air. General: No acute distress. Resting comfortably in bed. Alert and oriented x3. Abdomen: Soft, nontender, nondistended. Respiratory: Good respiratory effort without audible wheezing or rales. : No suprapubic or CVA tenderness. Extremities: Moving all extremities. Labs: White blood cell count 8.1, hemoglobin 15.1, hematocrit 44.5, platelets 214,000. PTH 43. Urine culture: No growth to date. ASSESSMENT AND PLAN: Mr. 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 The patient has had significant enlargement of the stone over the past several years. The patient presented with pain, which seems to have resolved at this time. His infection count is stable at 8.1 today. PTH level is low at 43. The patient's urine culture shows no growth. The patient has remained afebrile for almost 36 hours now. Overall, the patient seems to be doing well. The patient likely can be discharged home today. We recommend ensuring culture is negative. I encouraged the patient to follow up in the urology office in several weeks and would schedule him for a right percutaneous nephrostolithotomy. The patient likely needs intervention on his stone as it has progressively gotten larger over time and eventually will become a full staghorn stone. I told him if he does not proceed with surgical intervention, that he may damage his kidney and that he could loose his kidney from the large stone burden. The patient expressed understanding. He states that his pain is well controlled today. He is willing to follow up in the office. cc: Evangelista Trimble MD [facility]ITALMaria M
[2019-08-18] MEDS: NICODERM PATCH TD SCH (10:35)
[2019-08-18] MEDS: FLOMAX PO SCH (10:35)
--- NOTE | 2019-08-18 15:07 | DISCHARGE SUMMARY ---
ADMISSION DATE: 08/16/2019 DISCHARGE DATE: 08/18/2019 DISPOSITION: Home. FOLLOW-UP: Will be with Dr. Trimble on 08/29/2019. CONSULTATION DURING THIS ADMISSION: Urology was consulted. Patient was seen by Dr. Trimble. INVASIVE STUDIES DURING THIS ADMISSION: None. IMAGING STUDIES OF SIGNIFICANCE: A CT scan for renal stone search was done on 08/16/2019. Results showed a right nephrolithiasis and apparent inflammation around the right renal pelvis. ADMISSION DIAGNOSES: 1. Right nephrolithiasis with inflammation around the right renal pelvis. 2. Chronic lower back pain. DIAGNOSES AT THE TIME OF DISCHARGE: 1. Right nephrolithiasis with possible pyelonephritis. 2. Clinical volume depletion. 3. Chronic lower back pain. 4. History of tobacco use and abuse. 5. Mild transaminitis. MICROBIOLOGY DATA: Urine culture came back negative. DISCHARGE MEDICATIONS: 1. Gabapentin 100 mg p.o. daily. 2. Tamsulosin 0.4 p.o. daily. 3. Levofloxacin 750 p.o. daily for 14 days. 4. Bentyl 20 mg p.o. daily 3 times per day. PRESENTING COMPLAINT: Abdominal pain, right flank pain. HISTORY OF PRESENTING COMPLAINT: Mr. Barba is a 33-year-old male with a history of chronic lower back pain. Also has multiple kidney stones in the past. Came to the emergency department because of acute onset of a right-sided abdominal and flank pain which continued to be getting worse. Upon presenting to the emergency department, he was evaluated and was found to have mild CVA tenderness and right flank pain. Urine was slightly pathological. A CT scan of the abdomen for renal stone search was done which revealed about a 17 mm large stone in the lower pole of the right renal pelvis with some inflammation. Mr. Barba was subsequently admitted for further medical care. HOSPITAL COURSE: Mr. Barba was admitted to the medical floor, was adequately fluid resuscitated, and was started on broad-spectrum IV antibiotics. A consult was placed for Urology to see him. Dr. Trimble, the urologist waterfront director saw Mr. Barba, and they agreed to do hydration, IV antibiotics for some time and for him to follow up with him on outpatient base to determine if surgery will be needed at some point. This morning, Mr. Barba refers to be doing a whole lot better. His vitals are stable. He is no more in pain. He is going to be on antibiotics for a total of 14 days recommended by Urology. He is also on some pain medication and tamsulosin. His liver enzymes were slightly elevated during the hospital course. Hepatitis panel has been done; at the time of the discharge it was not ready. He will review this with his primary care doctor. His PTH level was also normal. Mr. Braba is clinically stable for discharge today. We have counseled him on smoking cessation, adequate hydration, and follow-up appointment. Time spent for discharge is 37 minutes. cc: MD Evangelista Avery MD
[2019-08-19 09:46] LABS: HEPATITIS PROFILE ACUTE SEE COMMENTS
== END 2019-08-18 14:36 | disposition home or self-care (01) | DRG 694 ==
LOC: P.ED 16:19 → 3N 23:00 → SUATTDRO 23:00 → 3N 23:45
PROVIDERS: ATTEND Internal Medicine